=== PATIENT | male | born 1970 | race African-American/Black ===

== ENCOUNTER 2016-05-29 10:20 | Emergency (ER) | payer MEDICAID ==
[2016-05-29] MEDS ORDERED: IOPAMIDOL 370 (76%) 100 ML VIAL IV ONE (10:21)
[2016-05-29 11:48] LABS: VENOUS BLOOD GAS BASE EXCESS -3.4 mmol/L (-2.0-2.0); VENOUS BLOOD GAS HCO3 20.5 mmol/L (22.0-27.0)
[2016-05-29 11:58] LABS: ABSOLUTE NEUTROPHIL COUNT 11.6 K/mm3 (1.8-7.7); BASO # 0.1 K/mm3 (0.0-0.2); BASO % 0.6 % (0.2-1.0); EOS % 0.2 % (0.9-2.9); HEMATOCRIT 41.7 % (32.0-52.0); HEMOGLOBIN 14.2 gm/l (14.0-18.0); IMM NEUT% 0.3 % (0-1); LYMPH # 0.8 (1.0-4.8); LYMPH % 6.4 % (15-45); MEAN CORPUSCULAR HGB CONC 34.1 g/dl (33.0-37.0); MEAN PLATELET VOLUME 10.5 fl (7.4-10.4); MONO # 0.7 (0.0-0.8); MONO % 5.1 % (4-12); NEUT % 87.4 % (43-75); PLATELET COUNT 340 K/mm3 (130-400); RED CELL DISTRIBUTION WIDTH 15.2 % (11.5-14.5)
[2016-05-29 12:04] LABS: ALBUMIN 3.2 gm/dL (3.5-5.7); CALCIUM 8.8 mg/dL (8.6-10.3); MAGNESIUM 1.8 mg/dL (1.9-2.7)
[2016-05-29 12:06] LABS: TROPONIN I 0.04 ng/ml (0.0-0.06)
[2016-05-29 12:10] LABS: CKMB ISOENZYME 12.5 ng/ml (0.6-6.3)
[2016-05-29 13:11] LABS: SPECIFIC GRAVITY 1.025 (1.001-1.030); URINE BILIRUBIN NEGATIVE (NEGATIVE); URINE BLOOD NEGATIVE (NEGATIVE); URINE GLUCOSE (UA) NEGATIVE (NEGATIVE); URINE LEUKOCYTE ESTERASE NEGATIVE (NEGATIVE); URINE NITRITE NEGATIVE (NEGATIVE); URINE PROTEIN 1+ (NEGATIVE); URINE UROBILINOGEN NORMAL (0-1 mg/dl)
[2016-05-29 13:13] LABS: URINE APPEARANCE CLEAR; URINE COLOR AMBER
[2016-05-29 13:28] LABS: AMPHETAMINES/METHAMPHETAMINES POSITIVE (NEGATIVE); COCAINE NEGATIVE (NEGATIVE); MARIJUANA POSITIVE (NEGATIVE); METHADONE NEGATIVE (NEGATIVE); OPIATES NEGATIVE (NEGATIVE); TRICYCLIC ANTIDEPRESSANTS NEGATIVE (NEGATIVE)
[2016-05-29 13:38] LABS: URINE EPITHELIAL CELLS 0 /hpf; URINE RBC 0 /hpf; URINE WBC 0-1 /hpf
[2016-05-29 13:39] LABS: URINE BACTERIA 1+
[2016-05-29] MEDS ORDERED: FUROSEMIDE 40 MG/4 ML VIAL ONE (14:17)
--- NOTE | 2016-05-29 14:43 | CT ---
INDICATION: Dyspnea, elevated d-dimer COMPARISON: None. TECHNIQUE: Helical scan mode CT of the Thorax with 2 mm collimated images were obtained after uneventful intravenous contrast administration of 80 of Isovue-[id number]. Sagittal and coronal reformations with high resolution lung algorithm images were also created at this time. Maximal intensity projection images and 3-D volumetric sequences were created at a separate, dedicated workstation. DLP: 485.9 FINDINGS: There are no pulmonary arterial filling defects. Patient breathing motion artifact is present, limiting assessment. Patchy airspace disease is present within the right middle lobe. Additionally tree-in-bud opacity is present within the posterior aspect of the right middle lobe compatible with small airways disease. There is some thickening to the perihilar, central bronchi which may relate to infection though edema is possible. There also areas of intralobular septal thickening, right greater than left. Moderate right-sided effusion is present with small left-sided effusion. Associated compressive airspace disease is present though underlying pneumonia cannot be excluded. The central airways are widely patent. There is no axillary or mediastinal adenopathy. Enlarged right hilar node on image 49 measures 2 x 1.6 cm. No other hilar adenopathy.. The heart and great vessels opacify normally. Limited assessment of the abdomen demonstrates reflux of contrast into the hepatic veins. Findings can be seen in patient's with cardiac dysfunction. The remainder the abdomen is unremarkable. Review of bone windows demonstrates no osteoblastic or lytic lesions. IMPRESSION: 1. Negative for pulmonary embolism despite limitations. 2. Right middle lobe pneumonia. Consideration for atypical pathogen's should be considered given this distribution. Possible underlying edema is also noted though these findings can be ascribed to infection. 3. Right greater than left bilateral effusions with associated compressive airspace disease. Underlying pneumonia can't excluded. 4. Other incidental findings as above. Findings were called to Dr. Aguirre at approximately 1436 hours on 05/29/2016.
[2016-05-29] MEDS ORDERED: CEFTRIAXONE 1 GRAM DUPLEX 50 ML IV ONE ×2 (14:58→15:13)
[2016-05-29] MEDS ORDERED: DOXYCYCLINE HYCLATE 100 MG TABLET ONE ×2 (14:58→15:12)
[2016-05-29] MEDS ORDERED: SODIUM CHLORIDE 0.9% 50 ML IV ONE (15:16)
== END 2016-05-29 15:43 | disposition other institution (70) ==
LOC: ED 10:20
DX: J18.9 Pneumonia, unspecified organism (principal); I11.0 Hypertensive heart disease with heart failure; I50.9 Heart failure, unspecified; F17.210 Nicotine dependence, cigarettes, uncomplicated; R60.9 Edema, unspecified
CPT/HCPCS: 83605; 83690; 83880; 85379; 82803; 85025; 82553; 87040 ×2; 87086; 80305; 80053; 83735; 84484; 81001; 71275; 87804; 96375; 99285 ×2; 96365; 36415; 93005; J1940; A9270; J7050; Q9967; J0696 ×2